=== PATIENT | female | born 1955 | race Caucasian/White ===

== ENCOUNTER → 2016-05-08 | Outpatient (CLI) | payer OTHER ==
--- NOTE | 2016-05-08 17:43 | MA ---
Screening Digital Mammogram With Tomosynthesis Clinical Indications: Routine screening. Technique: Standard digital cephalocaudal and tomosynthesis mediolateral oblique projections are obt ained. An additional digital cc view is performed of the right breast. The digital images are process ed by the [facility] computer aided detection system. Comparison: June 2014, June 2013, June 2012 and February 2011 Breast density: C; The breast tissue is heterogeneously dense, which could obscure detection of small masses. Findings: CAD was reviewed. There is possibly a band of increasing pleomorphic microcalcifications in the central upper left breast. The remainder of the left and right breast are stable. Impression: Increasing microcalcifications left breast.. Recommendation: Diagnostic mammogram with magnification views for further evaluation.. BI-RADS 0. Additional imaging of the left breast with a diagnostic mammogram. [facility] will send a result letter to the patient. Negative mammography should not preclude additional workup of a clinically suspicious finding. The patient's information is entered into a reminder system with a target due date for her next mammo gram.
== END ==
LOC: FIMAGING 16:01
DX: Z12.31 Encounter for screening mammogram for malignant neoplasm of breast (principal); R92.0 Mammographic microcalcification found on diagnostic imaging of breast
CPT/HCPCS: G0202

== ENCOUNTER → 2016-05-16 | Outpatient (CLI) | payer OTHER ==
--- NOTE | 2016-05-16 16:00 | MA ---
Diagnostic Digital Left Mammogram History: Developing microcalcifications. Comparison: May 08, 2016 and July 11, 2014. Technique: A true lateral view and 3 magnification views of the left breast. Density: C Findings: There are scattered and small cluster of microcalcifications that are consistent with likel y benign milk of calcium. No obvious suspicious calcifications are identified. Impression: Probably benign microcalcifications. BI-RADS 3, probably benign Recommendation: 6 month follow-up diagnostic mammogram with magnification views to ensure stability Results and recommendation discussed with the patient, who is in agreement with the plan.
== END ==
LOC: FIMAGING 14:56
PROVIDERS: ATTEND Internal Medicine
DX: Z12.39 Encounter for other screening for malignant neoplasm of breast (principal); R92.0 Mammographic microcalcification found on diagnostic imaging of breast
CPT/HCPCS: G0206

== ENCOUNTER → 2016-11-26 | Outpatient (CLI) | payer OTHER | LOC: FIMAGING 08:50 | PROVIDERS: ATTEND Internal Medicine | DX: R92.0 Mammographic microcalcification found on diagnostic imaging of breast (principal) | CPT/HCPCS: G0206 ==

== ENCOUNTER → 2017-05-20 | Outpatient (CLI) | payer OTHER | LOC: FIMAGING 08:57 | PROVIDERS: ATTEND Internal Medicine | DX: Z12.31 Encounter for screening mammogram for malignant neoplasm of breast (principal) ==

== ENCOUNTER → 2018-05-01 | Outpatient (CLI) | payer OTHER | LOC: BMCIMAGING 12:20 | PROVIDERS: ATTEND Family Medicine | DX: R07.89 Other chest pain (principal) ==

== ENCOUNTER → 2018-05-28 | Outpatient (CLI) | payer OTHER | LOC: FIMAGING 08:23 | PROVIDERS: ATTEND Internal Medicine | DX: Z12.31 Encounter for screening mammogram for malignant neoplasm of breast (principal) ==